=== PATIENT | female | born 1950 | race Caucasian/White ===

== ENCOUNTER 2018-04-22 10:22 | Inpatient (IN) | payer MEDICARE, OTHER ==
[~2018-04-22] VITALS: Ht 170.2 cm; Wt 104.3 kg
--- NOTE | ~2018-04-22 | PROC ---
[address] [address] PROCEDURE REPORT Name: SHASHANK ZIMMERMAN Room: [address] IN ..#: [id number] Admission: 04/22/18 Attend Phys: Nasir Beverly MD Discharge: 04/23/18 Date of : 50 Report #: [id number] THIS REPORT FOR: //name// For GI report, please see the Provation report in Perceptive 7 content. By: 0636Medical Records Staff CIPRIANO /JUNAID
--- NOTE | ~2018-04-22 | CON ---
[address] [address] CONSULTATION Name: SHASHANK ZIMMERMAN Room: [address] IN .R.#: [id number] Admission: 04/22/18 Attend Phys: Nasir Beverly MD Discharge: Date of : 50 Report #: [id number] THIS REPORT FOR: //name// CC: Nasir Martin HISTORY OF PRESENT ILLNESS: The patient is a pleasant 67-year-old female with past medical history significant for gastroesophageal reflux disease and ischemic colitis who is presenting for evaluation of chest pain. The patient reports the pain is located in the midchest, not associated with exertion, but is associated with bending forward and turning. The patient reports the pain is burning in nature and is relieved by taking antacid medication. She reports associated nausea, no vomiting and also denies any hematemesis. The patient has had an EGD, the last one was 2 years back. She also reports intermittent dysphagia to solids, but denies any significant weight loss. PAST MEDICAL HISTORY: Nonsignificant. PAST SURGICAL HISTORY: The patient had hysterectomy, left total hip replacement, breast biopsy. FAMILY HISTORY: There is no family history of gastroesophageal or colonic malignancy. SOCIAL HISTORY: The patient denies smoking, alcohol or recreational drug use. REVIEW OF SYSTEMS: Comprehensive 10-point review of systems is negative except for what is mentioned in the HPI. PHYSICAL EXAMINATION: VITAL SIGNS: Temperature 36.7, pulse rate 72, respiration rate 16, blood pressure 130/90, pulse ox 98%. GENERAL: The patient is alert, awake, oriented x 3. HEENT: Pupils are equal, round, reactive to light and accommodation. Mucous membranes are moist. There is no congestion. LUNGS: Clear to auscultation bilaterally. CARDIOVASCULAR: Rate and rhythm regular, S1, S2 present. ABDOMEN: Soft. There is no distention, guarding or rigidity. EXTREMITIES: Warm, well perfused. LABORATORY DATA: Hemoglobin 13.1, hematocrit 39.2, platelet count 193, WBC count 3.6. Sodium 142, potassium 3.8, chloride 106, bicarbonate 30, BUN 13, creatinine 0.7, total bilirubin 0.4, AST 19, ALT 25, alkaline phosphatase 86, lipase 104. ASSESSMENT AND PLAN: This is a pleasant 67-year-old female with past medical history significant for gastroesophageal reflux disease, [place] [address] CONSULTATION Name: SHASHANK ZIMMERMAN Room: [address]#: [id number] Admission: 04/22/18 Attend Phys: Nasir Beverly MD Discharge: Date of : 50 Report #: [id number] pain, worse on bending forward and relieved by antacid medication, with intermittent dysphagia to solids. We will proceed with an EGD for endoscopic evaluation of the esophageal gastric mucosa and make further recommendations based on these tests. By: 1042 Castillo Chirinos MD /antonia
[~2018-04-22 10:22] MED LIST: ACYCLOVIR; ACYCLOVIR 200200 MG; ESTROGEN CREAM; OMEPRAZOLE; VICODIN; ZPAK
[2018-04-22 10:28] VITALS: BP 180/83; BP 202/90
[2018-04-22] MEDS ORDERED: SOLODYN55 MG PO (10:32)
[2018-04-22] MEDS ORDERED: MOBIC15 MG PO (10:32)
[2018-04-22] MEDS ORDERED: TRAMADOL 50 MG50 MG PO (10:33)
[2018-04-22 10:42] LABS: ABSOLUTE LYMPHOCYTES 1.5 thou/uL (0.8-5.3); ABSOLUTE MONOCYTES 0.4 thou/uL (0.0-1.2); ABSOLUTE NEUTROPHILS 2.1 thou/uL (1.6-8.1); EOSINOPHILS 1.1 %; HEMATOCRIT 41.7 % (37.0-47.0); HEMOGLOBIN 13.8 gm/dL (12.0-15.0); LYMPHOCYTES 35.6 %; MCH 30.4 pg (26.0-34.0); MCHC 33.2 g/dL (28.0-37.0); MCV 91.7 fL (80.0-100.0); MONOCYTES 10.9 %; MPV 8.2 fl. (7.2-11.1); NUCLEATED RBCS 0 /100WBC; PLATELET COUNT* 203 thou/uL (150-400); POLYS 51.4 %; RBC 4.55 mil/uL (4.20-5.00); RDW-CV 13.8 % (10.5-14.5); WBC 4.1 thou/uL (4.0-11.0)
[2018-04-22 10:51] LABS: ANION GAP 5 mmol/L (7-16); BUN 16 mg/dL (7-18); CALCIUM 8.9 mg/dL (8.5-10.1); CHLORIDE 105 mmol/L (98-107); CO2 31 mmol/L (21-32); CREATININE 0.7 mg/dL (0.6-1.3); GLUCOSE 109 mg/dL (70-99); POTASSIUM 3.7 mmol/L (3.5-5.1); SODIUM 141 mmol/L (136-145)
[2018-04-22 11:10] LABS: ALBUMIN 3.4 g/dL (3.4-5.0); ALKALINE PHOSPHATASE 86 U/L (46-116); APTT 26.4 Seconds (25.0-31.3); CK-MB MASS 2.9 ng/mL (<0.5-3.6); LIPASE 104 U/L (73-393); NT-PRO BRAIN NAT PEPTIDE 55 pg/mL (<300); SGOT 19 U/L (15-37); SGPT 25 U/L (30-65); TOTAL BILIRUBIN 0.4 mg/dL (<0.1-1.0); TOTAL PROTEIN 7.1 g/dL (6.4-8.2); TROPONIN-I LEVEL <0.06 ng/mL (<0.06)
--- NOTE | 2018-04-22 14:58 | EKG ---
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1950 Requested By: Pee Barrett Order Number: [id number] MD: Seferino Shabazz Measurements Intervals [place] Rate: 80 P: 60 TX: 183 QRS: 58 QRSD: 142 T: -2 QT: 385 QTc: 445 Interpretive Statements Sinus rhythm Probable left atrial enlargement Right bundle branch block Compared to ECG 10/14/2014 21:04:04 Right bundle-branch block now present Electronically Signed On 04-22-2018 14:58:13 ENRICHMENT TEACHER by Seferino Shabazz [email or web address] <ELECTRONICALLY SIGNED> By: Seferino Shabazz MD, [facility] 04/22/18 1458 1026 1026 Seferino Shabazz MD, [facility] /EPI
[2018-04-22 15:15] VITALS: BP 156/69
[2018-04-22 15:53] VITALS: BP 173/84
[2018-04-22 20:15] VITALS: BP 137/70
[2018-04-23] VITALS (7 sets, daily range): BP systolic 123–142; BP diastolic 60–70
[2018-04-23 05:53] LABS: ABSOLUTE LYMPHOCYTES 1.4 thou/uL (0.8-5.3); ABSOLUTE MONOCYTES 0.4 thou/uL (0.0-1.2); ABSOLUTE NEUTROPHILS 1.7 thou/uL (1.6-8.1); BASOPHILS 0.6 %; EOSINOPHILS 0.9 %; HEMATOCRIT 39.2 % (37.0-47.0); HEMOGLOBIN 13.1 gm/dL (12.0-15.0); MCH 30.6 pg (26.0-34.0); MCHC 33.5 g/dL (28.0-37.0); MCV 91.2 fL (80.0-100.0); MONOCYTES 11.4 %; MPV 8.9 fl. (7.2-11.1); NUCLEATED RBCS 0 /100WBC; PLATELET COUNT* 193 thou/uL (150-400); POLYS 48.1 %; RBC 4.29 mil/uL (4.20-5.00); RDW-CV 13.6 % (10.5-14.5); WBC 3.6 thou/uL (4.0-11.0)
[2018-04-23 06:11] LABS: ANION GAP 6 mmol/L (7-16); BUN 13 mg/dL (7-18); CALCIUM 8.9 mg/dL (8.5-10.1); CHLORIDE 106 mmol/L (98-107); CHOLESTEROL 212 mg/dL (<200); CO2 30 mmol/L (21-32); CREATININE 0.7 mg/dL (0.6-1.3); GLUCOSE 102 mg/dL (70-99); HDL CHOLESTEROL 51 mg/dL (>40); LDL CHOLESTEROL 146 mg/dL (<100); POTASSIUM 3.8 mmol/L (3.5-5.1); SODIUM 142 mmol/L (136-145); TC:HDL 4.2 Ratio (Not establshd); TRIGLYCERIDE 76 mg/dL (<150); VLDL 15 mg/dL (<40)
[2018-04-23 06:13] LABS: SERUM ASSESSMENT Clear
--- NOTE | 2018-04-23 10:56 | EKG ---
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1950 Requested By: Pee Barrett Order Number: [id number] Reading MD: Seferino Shabazz Measurements Intervals [place] Rate: 70 P: 52 [place]: 202 QRS: 54 QRSD: 143 T: -2 QT: 409 QTc: 442 Interpretive Statements Sinus rhythm Probable left atrial enlargement Right bundle branch block Compared to ECG 04/22/2018 10:26:40 No significant changes Electronically Signed On 04-23-2018 10:56:27 METAL FURNACE OPERATOR by Seferino Shabazz [email or web address] <ELECTRONICALLY SIGNED> By: Seferino Shabazz MD, [facility] 04/23/18 1056 1549 1549 Seferino Shabazz MD, [facility] /EPI
[2018-04-23] MEDS ORDERED: PROTONIX40 M2 PO (12:13)
--- NOTE | 2018-04-23 14:57 | EKG ---
[place] [address] ELECTROCARDIOGRAM REPORT Name: SHASHANK ZIMMERMAN Room: [address] IN [facility].#: [id number] Admission: 04/22/18 Attend Phys: Nasir Beverly MD Discharge: 04/23/18 Date of : 50 Report #: [id number] THIS REPORT FOR: //name// [facility] Test Date: 2018-04-22 Test Time: 21:49:45 Pat Name: SHASHANK ZIMMERMAN Department: Room: [address] Gender: F Math Coach: RB : 1950 Requested By: Pee Barrett Order Number: [id number] Connor MD: Seferino Shabazz Measurements Intervals [place] Rate: 76 P: 63 DE: 200 QRS: 44 QRSD: 142 T: -5 QT: 387 QTc: 436 Interpretive Statements Sinus rhythm Right bundle branch block Compared to ECG 04/22/2018 10:26:40 No significant changes Electronically Signed On 04-23-2018 14:57:37 PROCESSING SPEC by Seferino Shabazz [email or web address] <ELECTRONICALLY SIGNED> By: Seferino Shabazz MD, [facility] 04/23/18 1457 2149 Seferino Shabazz MD, [facility] /EPI
--- NOTE | 2018-04-23 16:55 | CON ---
[address] [address] CONSULTATION Name: SHASHANK ZIMMERMAN Room: [address] IN ..#: [id number] Admission: 04/22/18 Attend Phys: Nasir Beverly MD Discharge: 04/23/18 Date of : 50 Report #: [id number] THIS REPORT FOR: //name// CC: Nasir Martin MD DATE OF SERVICE: 04/22/2018 HISTORY OF PRESENT ILLNESS: The patient is a 67-year-old white female who I was asked to see in the hospital today after she complained of chest pain. The patient states she has had no previous history of heart disease. She was told in the past she had a heart murmur. 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 She wore a monitor and was found to have no significant arrhythmias. She was doing well until she woke up at 8:00 this morning. She felt a sharp pain in her chest. It is worse if she moves her arms. She denied recent fever, cough, blood in her stool. Denied any vomiting. She denied any shortness of breath, diaphoresis, or nausea. She came into the Emergency Room, was given antacids. This did not seem to help. She is admitted for further evaluation and treatment. She denies exertional dyspnea. PAST MEDICAL HISTORY: Significant for tonsillectomy, hysterectomy, hip surgery, hypertension. MEDICATIONS: Include acyclovir for fever blisters, minocycline for acne, meloxicam as needed, tramadol as needed for back pain. She has been told in the past her cholesterol was high. FAMILY HISTORY: Negative for heart disease. SOCIAL HISTORY: She is . She and her live on a farm outside [place], [place]. No smoking or alcohol abuse. REVIEW OF SYSTEMS: She has had no history of stroke, asthma, peptic ulcer disease, liver disease, kidney disease, cancer, psychiatric illness. She does wear glasses. PHYSICAL EXAMINATION: GENERAL: Revealed an elderly female, lying in bed. She appeared in no acute distress. VITAL SIGNS: Blood pressure 160/70, pulse 70. HEENT: She was anicteric, conjunctivae pink. Mucous members moist. NECK: Veins do not appear distended. No carotid bruits. Neck supple. CHEST: Clear to auscultation. CARDIOVASCULAR: Regular rate and a grade 2 systolic ejection murmur. ABDOMEN: Obese, soft, [place] [address] CONSULTATION Name: SHASHANK ZIMMERMAN Room: [address]#: [id number] Admission: 04/22/18 Attend Phys: Nasir Beverly MD Discharge: 04/23/18 Date of : 50 Report #: [id number] EXTREMITIES: Had no edema. Dorsalis pedis pulse 2+ bilaterally. SKIN: Warm, dry. NEUROLOGIC: Nonfocal. LYMPH: No adenopathy. MUSCULOSKELETAL: No joint effusion. Her ECG on arrival today showed a sinus rhythm with a right bundle branch block. Her workup in the Emergency Room today, sodium 141, creatinine 0.7. Liver function studies were normal. Troponin 0.06. White blood cell count 4.1, hemoglobin 13.8. The patient had a chest x-ray in the Emergency Room today that showed normal heart size, clear lung mendez. There was evidence for hiatal hernia. IMPRESSION AND RECOMMENDATIONS: 1. Chest pain. Atypical for angina. Suspect noncardiac. Recommend no cardiac evaluation. 2. Chronic back pain. 3. Elevated blood pressure. I will consider starting medications. 4. Evidence for hiatal hernia. <ELECTRONICALLY SIGNED> By: Seferino Shabazz MD, FACC 04/23/18 1655 1545 2205Dakay Shabazz MD, FACC /nt
== END 2018-04-23 12:35 | disposition home or self-care (01) | DRG 392 ==
LOC: M.ERS 10:22 → M.2W 12:16 → M.TBA-ER 12:16 → M.2W 15:15
PROVIDERS: Family Medicine; ADMIT Internal Medicine
PROC: 0DJ08ZZ Inspection of Upper Intestinal Tract, Via Natural or Artificial Opening Endoscopic (ICD-10-PCS; principal; 2018-04-23)
DX: K44.9 Diaphragmatic hernia without obstruction or gangrene (principal); K21.9 Gastro-esophageal reflux disease without esophagitis; Z96.642 Presence of left artificial hip joint; I20.9 Angina pectoris, unspecified; M19.90 Unspecified osteoarthritis, unspecified site; G89.29 Other chronic pain; M54.9 Dorsalgia, unspecified; Z79.899 Other long term (current) drug therapy; Z90.710 Acquired absence of both cervix and uterus

== ENCOUNTER → 2018-05-14 | Outpatient (CLI) | payer MEDICARE, OTHER ==
[~2018-05-14] MED LIST changes: +MOBIC15 MG PO; +PROTONIX40 M2 PO; +SOLODYN55 MG PO; +TRAMADOL 50 MG50 MG PO
--- NOTE | 2018-05-14 15:16 | 2DMMODE ---
[place] [address] 2 D/M-MODE ECHOCARDIOGRAM Name: SHASHANK ZIMMERMAN Room: [facility]#: [id number] Admission: 05/14/18 Attend Phys: Kirsten Dwyer Discharge: Date of : 50 Date of Service: 05/14/18 1516 Report #: [id number] THIS REPORT FOR: //name// APPROVED REPORT Study performed: 05/14/2018 14:04:31 EXAM: Comprehensive 2D, Doppler, and color-flow Echocardiogram Patient Location: Out-Patient Status: routine BSA: 2.15 HR: 83 bpm BP: 142/78 mmHg Other Information Study Quality: Good Indications Left atrial enlargement 2D Dimensions IVSd: 11.32 (7-11mm) LVOT Diam: 19.69 (18-24mm) LVDd: 45.06 mm PWd: 11.39 (7-11mm) Ascending Ao: 29.47 (22-36mm) LVDs: 23.90 (25-40mm) Aortic Root: 31.37 mm Volumes Left Atrial Volume (Systole) LA ESV Index: 17.70 mL/m2 Aortic Valve AoV Peak Kirk.: 1.92 m/s AO Peak Gr.: 14.73 mmHg LVOT Max P.67 mmHg AO Mean Gr.: 7.31 mmHg LVOT Mean P.33 mmHg LVOT Max V: 1.38 m/s AO V2 VTI: 34.62 cm LVOT Mean V: 0.82 m/s LELAND (VTI): 2.37 cm2 LVOT V1 VTI: 26.96 cm Mitral Valve E/A Ratio: 0.67 MV Decel. Time: 240.35 ms MV E Max Kirk.: 0.80 m/s MV PHT: 69.70 [place] [address] 2 D/M-MODE ECHOCARDIOGRAM Name: SHASHANK ZIMMERMAN Room: [facility]#: [id number] Admission: 05/14/18 Attend Phys: Kirsten Dwyer Discharge: Date of : 50 Date of Service: 05/14/18 1516 Report #: [id number] MVA (PHT): 3.16 cm2 TDI E/Lateral E': 10.00 E/Medial E': 8.89 Medial E' Kirk.: 0.09 m/s Lateral E' Kirk.: 0.08 m/s Pulmonary Valve PV Peak Kirk.: 1.15 m/s PV Peak Gr.: 5.25 mmHg Tricuspid Valve RAP Estimate: 5.00 mmHg TR Peak Gr.: 26.94 mmHg RVSP: 31.94 mmHg PA Pressure: 31.94 mmHg Left Ventricle The left ventricle is normal size. There is normal LV segmental wall motion. Mild concentric left ventricular hypertrophy. Left ventricular systolic function is normal. The left ventricular ejection fraction is within the normal range. LVEF is 65-70%. Grade I - abnormal relaxation pattern. Right Ventricle The right ventricle is normal size. The right ventricular systolic function is normal. Atria Left atrium is mildly dilated. The right atrium size is normal. Aortic Valve The aortic valve is normal in structure. No aortic regurgitation is present. There is no aortic valvular stenosis. Mitral Valve The mitral valve is normal in structure. There is no mitral valve regurgitation noted. No evidence of mitral valve stenosis. Tricuspid Valve The tricuspid valve is normal in structure. Mild tricuspid regurgitation. Pulmonic Valve The pulmonary valve is normal in structure. There is no pulmonic [place] [address] 2 D/M-MODE ECHOCARDIOGRAM Name: ELSIESHASHANK L Room: [facility]#: [id number] Admission: 05/14/18 Attend Phys: Kirsten Dwyer Discharge: Date of : 50 Date of Service: 05/14/18 1516 Report #: [id number] Great Vessels The aortic root is normal in size. IVC is normal in size and collapses >50% with inspiration. Pericardium There is no pericardial effusion. <Conclusion> LVEF is 65-70%. There is normal LV segmental wall motion. Mild concentric left ventricular hypertrophy. There is no aortic valvular stenosis. No aortic regurgitation is present. No evidence of mitral valve stenosis. There is no mitral valve regurgitation noted. Grade I - abnormal relaxation pattern. Mild tricuspid regurgitation. Left atrium is mildly dilated. <ELECTRONICALLY SIGNED> By: Hasmukh Covarrubias MD, FACC 05/14/18 1516 1516 1516 Hasmukh Covarrubias MD, FACC /INF
== END ==
LOC: M.CRD 13:49
DX: I51.7 Cardiomegaly (principal)

== ENCOUNTER 2020-06-15 20:01 | Inpatient (IN) | payer MEDICARE ==
[~2020-06-15] VITALS: Ht 170.2 cm; Wt 107.0 kg
--- NOTE | ~2020-06-15 | OP ---
[address] [address] OPERATIVE REPORT Name: SHASHANK ZIMMERMAN Room: [address]#: [id number] Admission: 06/16/20 Attend Phys: Keyla Chaudhary MD Discharge: 06/17/20 Date of : 50 Report #: [id number] THIS REPORT FOR: cc: VIKA BALLESTEROS MD, HEATHER L. MD ~ Magdaleno Garrett MD DATE OF SERVICE: 06/17/2020 PREOPERATIVE DIAGNOSIS: A 3 mm distal left ureteral stone. POSTOPERATIVE DIAGNOSIS: A 3 mm distal left ureteral stone. PROCEDURE: Cystoscopy, left ureteroscopy with stone extraction, placement of left ureteral stent with attached string. STAFF SURGEON: Magdaleno Garrett MD POWER PLANT MANAGER: None. ANESTHESIA: General. ESTIMATED BLOOD LOSS: None. COMPLICATIONS: None. SPECIMEN: Left ureteral stone. DRAIN: A 26 cm x 6-Estonian left ureteral stent with attached string. INDICATIONS: The patient is a 69-year-old white female who presented to [facility] with severe left flank pain. CT scan confirmed a 3 mm distal stone with proximal hydronephrosis. Her pain was rather unbearable although significantly improved. She has not documented passing a stone, but she was afraid that the pain symptoms could come back. She was counseled regarding treatment options and elected for definitive cystoscopy, left retrograde pyelogram, left ureteroscopy, possible holmium laser lithotripsy, possible placement of left ureteral stent. After the risks and benefits of the procedure were explained, an informed consent was obtained. DESCRIPTION OF PROCEDURE: The patient was taken to the operating room, comfortably placed in the dorsal lithotomy position under adequate general anesthesia. She was sterilely prepped and draped in sterile fashion exposing only the genitalia. The patient received antibiotic therapy as prescribed. Appropriate timeout was carried out and all were in agreement. A 22-Estonian cystoscope with the obturator in place was blindly inserted [place] [address] OPERATIVE REPORT Name: SHASHANK ZIMMERMAN Room: [address]#: [id number] Admission: 06/16/20 Attend Phys: Keyla Chaudhary MD Discharge: 06/17/20 Date of : 50 Report #: [id number] The obturator was removed, draining clear yellow urine. Bladder was systematically viewed. Both ureteral orifices were identified. We could actually see a stone looks like just inside the ureteral orifice at a short distance. No other bladder calculi seen or foreign body observed. I put a 0.035 Glidewire up the left ureter of the kidney. The cystoscope was removed. I attempted to place a 4.5 Estonian ureteroscope through the urethra up the left ureter, but the transmural ureter was very narrow. The ureteroscope was subsequently removed and then advanced over the guidewire and it went over the guidewire, slowly advanced the scope through the transmural ureter into the distal ureter. At that point, was able to easily pass all the way up to about mid ureter. This was then brought back and identified the stone within the distal ureter. The ureteroscope was removed leaving the guidewire in place. The ureteroscope was inserted back into the urethra and up the left ureter, identified the stone. A 1.9-Estonian nitinol basket was used to engage the stone and gently removed it intact without difficulty. A 26 cm x 6-Estonian ureteral stent was advanced coaxially over the guidewire, positioned with good coil in the left renal pelvis and good coil in the bladder. The bladder was drained, cystoscope was removed. String was left attached and secured to the ipsilateral labia majora. She was extubated in the operating room, transferred to [facility] with assistance and went to recovery in stable condition. May remove the stent next Sunday. Follow up in our office in 6 weeks with a renal ultrasound. By: 1155 1239Magdaleno Garrett MD /antonia
[2020-06-15 20:04] VITALS: BP 174/83
[2020-06-15 20:23] LABS: URINE BILIRUBIN NEGATIVE (Negative); URINE BLOOD NEGATIVE (Negative); URINE CLARITY CLEAR; URINE COLOR YELLOW; URINE GLUCOSE-RANDOM NEGATIVE (Negative); URINE KETONES NEGATIVE (Negative); URINE LEUKOCYTES-REFLEX NEGATIVE (Negative); URINE NITRITE-REFLEX NEGATIVE (Negative); URINE PROTEIN NEGATIVE (Negative); URINE SPECIFIC GRAVITY 1.015 (1.005-1.030); URINE UROBILINOGEN 0.2 E.U./dl (0.2-1.0)
[2020-06-15 20:43] LABS: ABSOLUTE LYMPHOCYTES 1.3 thou/uL (0.8-5.3); ABSOLUTE MONOCYTES 0.5 thou/uL (0.0-1.2); ABSOLUTE NEUTROPHILS 2.9 thou/uL (1.6-8.1); BASOPHILS 0.9 %; EOSINOPHILS 0.7 %; HEMOGLOBIN 13.2 gm/dL (12.0-15.0); LYMPHOCYTES 28.2 %; MCH 30.4 pg (26.0-34.0); MCHC 33.1 g/dL (28.0-37.0); MONOCYTES 9.7 %; NUCLEATED RBCS 0 /100WBC; PLATELET COUNT* 222 thou/uL (150-400); POLYS 60.5 %; RBC 4.35 mil/uL (4.20-5.00); RDW-CV 13.1 % (10.5-14.5); WBC 4.8 thou/uL (4.0-11.0)
[2020-06-15 20:55] LABS: PROTIME 10.8 Seconds (9.20-11.50)
[2020-06-15 21:00] LABS: CALCIUM 9.8 mg/dL (8.5-10.1); CREATININE 0.9 mg/dL (0.6-1.3); POTASSIUM 3.9 mmol/L (3.5-5.1)
[2020-06-15 21:10] LABS: ALBUMIN 3.5 g/dL (3.4-5.0); TOTAL BILIRUBIN 0.4 mg/dL (<0.1-1.0); TOTAL PROTEIN 6.6 g/dL (6.4-8.2)
[2020-06-15] MEDS ORDERED: LISINOPRIL10 MG PO (22:04)
[2020-06-15] MEDS ORDERED: OMEPRAZOLE40 MG PO (22:04)
[2020-06-15] MEDS ORDERED: MELOXICAM15 MG PO (22:05)
[2020-06-15] MEDS ORDERED: CHILDREN'S ZYRT10 M1 PO (22:05)
[2020-06-15] MEDS ORDERED: ASA81BEC PO (22:05)
[2020-06-15] MEDS ORDERED: VYZULTA5 ML OPHTHALMIC (22:06)
[2020-06-15] MEDS ORDERED: BENTYL10 MG/1 ML IM (22:06)
[2020-06-15] MEDS ORDERED: LIALDA1.2 GM PO (22:07)
[2020-06-15 23:08] VITALS: BP 162/80
[2020-06-16 00:21] VITALS: BP 159/76
--- NOTE | 2020-06-16 04:24 | NUR ---
PT A&OX4, VSS ON 2L NC, IV SALINE LOCKED, PT UP WITH SBA, IV PAIN MED REQUESTED AND GIVEN ORDERED. WILL CONTINUE TO MONITOR.
[2020-06-16 07:40] VITALS: BP 156/77
--- NOTE | 2020-06-16 10:12 | EKG ---
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: ANNETTE : 1950 Requested By: Fallon Goel Order Number: [id number] MD: Lamin Goldman Measurements Intervals [place] Rate: 66 P: 63 MS: 210 QRS: 61 QRSD: 140 T: 7 QT: 427 QTc: 448 Interpretive Statements Sinus rhythm Probable left atrial enlargement Right bundle branch block Baseline wander in lead(s) II,III,aVF Compared to ECG 04/22/2018 21:49:45 No significant changes Electronically Signed On 06-16-2020 10:12:13 CDT by Lamin Goldman [email or web address] <ELECTRONICALLY SIGNED> By: Lamin Goldman MD, [facility] 06/16/20 1012 22 22 Lamin Goldman MD, [facility] /EPI
--- NOTE | 2020-06-16 13:43 | NUR ---
PT.LIVES WITH HER . SHOULD NOT HAVE DISCHARGE NEEDS. IF SHE FEELS BETTER TH AFTERNOON, MAY DISCHARGE HOME AND FOLLOW UP OUTPT. WITH UROLOGY. FEELS A GOOD POSSIBILITY PT.COULD PASS STONE ON HER OWN. IT IS 3MM. IF NOT COMFORTABLE ON ORAL PAIN MEDS WILL STAY OVER NIGHT,BE NPO AT [place] AND HAVE CYSTO IN AM BY UROLOGY. DISCUSSED WITH HER.
[2020-06-16 17:19] VITALS: BP 118/47
--- NOTE | 2020-06-16 17:55 | NUR ---
PT ALERT AND ORIENTED X 4. PT DENIES PAIN. PT HAS NOT PASSED STONE. AT BEDSIDE. PT HAS NOT REQUIRED O2 THIS SHIFT. IVF REMAIN INFUSING AT THIS TIME. CALL LIGHT WITHIN REACH. WILL CONTINUE TO MONITR.
[2020-06-16 19:16] VITALS: BP 132/59
--- NOTE | 2020-06-17 03:58 | NUR ---
PT A&OX4, VSS ON ROOM AIR, IV FLUIDS INFUSING ORDERED, PT UP WITH SBA, URINE STRAINED-NO STONE PASSED. PT HAS BEEN NPO SINCE MIDNIGHT FOR 06/17 PROCEDURE. PAIN MED REQUESTED FOR HEADACHE AND GIVEN ORDERED, NO ADDITIONAL CO PAIN OR DISCOMFORT THIS SHIFT. PT SLEEPING WELL. WILL CONTINUE TO MONITOR.
[2020-06-17 04:44] LABS: HEMATOCRIT 36.3 % (37.0-47.0); HEMOGLOBIN 11.9 gm/dL (12.0-15.0); MCH 30.3 pg (26.0-34.0); MCHC 32.8 g/dL (28.0-37.0); MCV 92.3 fL (80.0-100.0); MPV 8.3 fl. (7.2-11.1); RBC 3.93 mil/uL (4.20-5.00); RDW-CV 13.4 % (10.5-14.5); WBC 7.3 thou/uL (4.0-11.0)
[2020-06-17 05:01] LABS: CALCIUM 8.2 mg/dL (8.5-10.1); CREATININE 1.1 mg/dL (0.6-1.3); POTASSIUM 4.4 mmol/L (3.5-5.1)
[2020-06-17 07:50] VITALS: BP 144/68
[2020-06-17] MEDS ORDERED: HYDROCODON-ACE1 EAC7 PO (12:24)
[2020-06-17 12:46] VITALS: BP 144/68
--- NOTE | 2020-06-17 13:45 | NUR ---
PT.HAD CYSTO THIS AM AND URETERAL STENT PLACEMENT. IF STABLE ,TOLERATING REG DIET AND PAIN CONTROLLED MAY DISCHARGE TONIGHT.
[2020-06-17 15:19] VITALS: BP 144/73
[2020-06-17 16:39] VITALS: BP 144/68
[2020-06-17 17:18] VITALS: BP 144/68
--- NOTE | 2020-06-17 17:19 | NUR ---
PATIENT RETURNED TO UNIT AT APPROX. 1247 AFTER HAVING PROCEDURE AND URETERAL STENT PLACEMENT FROM DR. GILMAN. PATIENT HAS DENIED PAIN SINCE RETURNING TO UNIT. PATIENT WAS ABLE TO EAT SNACK AND KEEP DOWN HOWEVER PATIENT C/O NAUSEA PRIOR TO DISCHARGE, STATING THAT "IT IS NOT FROM EATING, IT'S FROM A HEADACHE I'VE HAD FOR A COUPLE DAYS". ADMINISTERED ZOFRAN PRIOR TO D/C WITH FULL RESULTS. PATIENT GIVEN DISCHARGE INSTRUCTIONS, PRESCRIPTION FOR NORCO AND INFO SHEETS ON MEDICATION. IV REMOVED. PATIENT DENIES QUESTIONS/CONCERNS PRIOR TO DISCHARGE. PATIENT LEFT UNIT WITH PERSONAL BELONGINGS VIA W/C, ACCOMPANIED BY NURSING STAFF AND AT APPROX. 1706.
== END 2020-06-17 17:06 | disposition home or self-care (01) | DRG 660 ==
LOC: M.ERS 20:01 → M.TBA-ER 22:18 → M.ORTHSURG 23:28
PROVIDERS: Emergency Medicine; Family Medicine; ADMIT Internal Medicine; ATTEND Internal Medicine
PROC: 0T778DZ Dilation of Left Ureter with Intraluminal Device, Via Natural or Artificial Opening Endoscopic (ICD-10-PCS; principal; 2020-06-17)
PROC: 0TC78ZZ Extirpation of Matter from Left Ureter, Via Natural or Artificial Opening Endoscopic (ICD-10-PCS; principal; 2020-06-17)
DX: N13.0 Hydronephrosis with ureteropelvic junction obstruction (principal); E87.0 Hyperosmolality and hypernatremia; I10 Essential (primary) hypertension; K76.89 Other specified diseases of liver; J30.2 Other seasonal allergic rhinitis; Z96.642 Presence of left artificial hip joint; Z20.822 Contact with and (suspected) exposure to COVID-19; Z90.710 Acquired absence of both cervix and uterus; Z79.82 Long term (current) use of aspirin; Z79.899 Other long term (current) drug therapy

== ENCOUNTER → 2020-07-02 | Outpatient (CLI) | payer MEDICARE ==
[~2020-07-02] MED LIST changes: +ASA81BEC PO; +BENTYL10 MG/1 ML IM; +CHILDREN'S ZYRT10 M1 PO; +HYDROCODON-ACE1 EAC7 PO; +LIALDA1.2 GM PO; +LISINOPRIL10 MG PO; +MELOXICAM15 MG PO; +OMEPRAZOLE40 MG PO; +VYZULTA5 ML OPHTHALMIC
== END ==
LOC: M.ULTRA 10:30
PROVIDERS: ATTEND Urology
DX: N20.0 Calculus of kidney (principal)